=== PATIENT | male | born 1970 | race Caucasian/White ===

== ENCOUNTER → 2024-01-27 17:57 | Outpatient (REF) | payer OTHER, SELFPAY | LOC: RCS 17:57 | PROVIDERS: ATTENDING PHYSICIAN Family Medicine | DX: R94.31 Abnormal electrocardiogram [ECG] [EKG] (principal) | CPT/HCPCS: 93306 ==

== ENCOUNTER → 2024-02-05 09:02 | Outpatient (REF) | payer OTHER, SELFPAY | LOC: RCS 09:02 | PROVIDERS: ATTENDING PHYSICIAN Family Medicine | DX: I10 Essential (primary) hypertension (principal); T73.3XXA Exhaustion due to excessive exertion, initial encounter; E78.2 Mixed hyperlipidemia | CPT/HCPCS: 93017 ==

== ENCOUNTER → 2025-01-05 14:32 | Outpatient (REF) | payer OTHER, SELFPAY | LOC: RAD 14:32 | PROVIDERS: ATTENDING PHYSICIAN Family Medicine | DX: Z91.81 History of falling (principal); M25.521 Pain in right elbow | CPT/HCPCS: 73080 ==